=== PATIENT | male | born 1965 | race Caucasian/White ===

== ENCOUNTER 2017-10-07 08:52 | Inpatient (IN) | payer BC, OTHER ==
[~2017-10-07] VITALS: Ht 180.3 cm; Wt 90.3 kg
[~2017-10-07 08:52] MED LIST: CHANTIX 1MG1 MG PO; NORCO 325 MG-51 TAB PO
[2017-11-16] VITALS (11 sets, daily range): BP systolic 107–147; BP diastolic 54–76; PULSE 65–91; TEMP 97.8–98.5
[2017-11-16] MEDS ORDERED: NORVASC 10MG10 MG PO (10:10)
[2017-11-17] VITALS (7 sets, daily range): BP systolic 102–137; BP diastolic 56–74; PULSE 66–76; TEMP 97.6–98.7
[2017-11-17 07:29] LABS: HEMOGLOBIN 12.3 g/dl (13.5-18.0)
[2017-11-17 07:31] LABS: HEMATOCRIT 35.6 % (42.0-52.0)
[2017-11-17 07:48] LABS: CALCIUM 9.2 mg/dL (8.4-10.2); MAGNESIUM 2.1 mg/dL (1.6-2.3); PHOSPHOROUS 3.2 mg/dL (2.5-4.5); POTASSIUM 4.1 mmol/L (3.4-5.0)
[2017-11-18] VITALS (7 sets, daily range): BP systolic 97–127; BP diastolic 56–72; PULSE 66–79; TEMP 97.7–99.2
[2017-11-18 07:02] LABS: HEMOGLOBIN 8.5 g/dl (13.5-18.0)
[2017-11-18 14:10] LABS: HEMATOCRIT 26.6 % (42.0-52.0)
[2017-11-19 04:40] VITALS: BP 134/64; PULSE 81; TEMP 98
[2017-11-19 08:05] VITALS: BP 120/64; PULSE 75; TEMP 97.9
== END 2017-11-19 12:45 | disposition home or self-care (01) | DRG 331 ==
LOC: INPTSU 11-16 09:40 → SURG 11-16 12:30
PROVIDERS: Surgery
PROC: 8E0W4CZ Robotic Assisted Procedure of Trunk Region, Percutaneous Endoscopic Approach (ICD-10-PCS; 2017-11-16)
PROC: 0DTF4ZZ Resection of Right Large Intestine, Percutaneous Endoscopic Approach (ICD-10-PCS; principal; 2017-11-16 12:30)
DX: C18.0 Malignant neoplasm of cecum (principal); I10 Essential (primary) hypertension; K21.9 Gastro-esophageal reflux disease without esophagitis; D12.0 Benign neoplasm of cecum; Z80.0 Family history of malignant neoplasm of digestive organs
CPT/HCPCS: A4314; A9284; J1100; J1650; J1885; J2405; J2704; J3010; J7120

== ENCOUNTER → 2019-08-13 | Outpatient (CLI) | payer BC ==
[2019-08-13] VITALS (14 sets, daily range): BP systolic 134–181; BP diastolic 50–97; PULSE 68–81
[~2019-08-13] VITALS: Ht 180.3 cm; Wt 97.5 kg
[~2019-08-13] MED LIST changes: +NORVASC 10MG10 MG PO
--- NOTE | 2019-08-13 09:45 | NUR ---
Pt to ct per ambulation. Monitors applied. Pt in supine position on ct table.
--- NOTE | 2019-08-13 10:00 | NUR ---
Dr Simpson talks with pt regarding procedure. Verbalized understanding of instructions.
--- NOTE | 2019-08-13 10:14 | NUR ---
Specimen obtained and placed in formalin by Dr Elaine. Specimen labeled.
--- NOTE | 2019-08-13 10:55 | NUR ---
Pt given orange juice and muffin to eat.
--- NOTE | 2019-08-13 11:30 | NUR ---
pt out to car per wheelchair. Denies pain at this time. Pt up and into car without difficulty.
== END ==
LOC: COL.RAD 08-06 13:00
DX: R19.09 Other intra-abdominal and pelvic swelling, mass and lump (principal); Z85.038 Personal history of other malignant neoplasm of large intestine